=== PATIENT | male | born 1995 | race Caucasian/White ===

== ENCOUNTER → 2016-05-23 | Outpatient (CLI) | payer OTHER | LOC: LAB 09:33 | DX: E29.1 Testicular hypofunction (principal); N62 Hypertrophy of breast | CPT/HCPCS: 36415; 82671; 83001; 83002; 84146; 84402; 84403; 84443 ==

== ENCOUNTER → 2016-06-01 | Outpatient (CLI) | payer OTHER | LOC: LAB 16:30 | DX: N62 Hypertrophy of breast (principal) | CPT/HCPCS: 36415; 82105; 84702 ==